=== PATIENT | female | born 1960 | race Hispanic/Latino ===

== ENCOUNTER → 2018-09-16 | Outpatient (CLI) | payer OTHER | END | disposition home or self-care (01) | LOC: RAH 16:04 | PROVIDERS: ATTEND Family Medicine | DX: Z12.31 Encounter for screening mammogram for malignant neoplasm of breast (principal) | CPT/HCPCS: 77067 ==

== ENCOUNTER 2019-05-19 07:31 | Emergency (ER) | payer OTHER ==
[2019-05-19 08:01] LABS: BASOPHILS % (AUTO) 0.4 % (0.0-5.0); EOSINOPHILS % (AUTO) 0.5 % (0.0-8.0); HEMATOCRIT 34.6 % (36-48); LYMPHOCYTES % (AUTO) 44.1 % (21.0-51.0); MEAN CORPUSCULAR HEMOGLOBIN 29.2 pg (27.0-33.0); MEAN CORPUSCULAR HGB CONC 32.4 g/dL (32.0-36.0); MEAN CORPUSCULAR VOLUME 90.3 fL (79-99); MONOCYTES % (AUTO) 9.6 % (3.0-13.0); NEUTROPHILS % (AUTO) 45.2 % (40.0-77.0); PLATELET COUNT (AUTO) 244 K/uL (130-400); RED BLOOD CELL COUNT(AUTO) 3.83 MIL/uL (4.00-5.50); RED CELL DISTRIBUTION WIDTH 11.3 % (11.0-15.5); WHITE BLOOD COUNT (AUTO) 5.7 K/uL (4.8-10.8)
[2019-05-19] MEDS ORDERED: LIDOCAINE HCL 2% VISCOUS 15 ML UDCUP ONE (08:07)
[2019-05-19] MEDS ORDERED: ASPIRIN 325 MG TABLET ONE (08:07)
[2019-05-19] MEDS ORDERED: MECLIZINE HCL 25 MG TABLET ONE (08:07)
[2019-05-19] MEDS ORDERED: MAGNESIUM HYDROXIDE 30 ML/UDCUP ONE (08:08)
[2019-05-19 08:09] LABS: CREATININE 0.6 mg/dL (0.5-1.5); POTASSIUM 3.5 mmol/L (3.5-5.1)
[2019-05-19 08:15] LABS: ALBUMIN 3.3 g/dL (3.5-5.0); BILIRUBIN,TOTAL 0.2 mg/dL (0.2-1.0)
== END 2019-05-19 10:42 | disposition home or self-care (01) ==
LOC: EDH 07:31
DX: R07.89 Other chest pain (principal); K21.9 Gastro-esophageal reflux disease without esophagitis; R51 Headache; R42 Dizziness and giddiness; I10 Essential (primary) hypertension; E11.9 Type 2 diabetes mellitus without complications
CPT/HCPCS: 36415; 70450; 71045; 80053; 82550; 82948; 84484; 85025; 93005

== ENCOUNTER → 2019-12-20 | Outpatient (CLI) | payer OTHER | END | disposition home or self-care (01) | LOC: RAH 10:13 | PROVIDERS: ATTEND Family Medicine | DX: Z12.31 Encounter for screening mammogram for malignant neoplasm of breast (principal) | CPT/HCPCS: 77067 ==

== ENCOUNTER 2023-01-12 10:04 | Day surgery (SDC) | payer OTHER ==
[2023-01-08 11:37] VITALS: BP 140/69; PULSE 53; RESP 18
[~2023-01-12] VITALS: Ht 152.4 cm; Wt 75.2 kg
[2023-01-12] VITALS (10 sets, daily range): BP systolic 119–164; BP diastolic 60–91; PULSE 59–70; RESP 13–22
[~2023-01-12 10:04] MED LIST: ASPI-1197 PO; CHOL200074 PO; CYAN1TAB44 PO; DIPH-1242 PO; LOSA50TA64 PO; METF-444 PO
[2023-01-12] MEDS ORDERED: PROPOFOL 10 MG/ML 20ML VIAL IV ONE (15:33)
[2023-01-12] MEDS ORDERED: ATROPINE 1MG SYG IVP ONE (15:34)
[2023-01-12] MEDS ORDERED: LIDOCAINE PF 100MG/5ML (2%) SYRINGE 5ML ONE (15:34)
[2023-01-12] MEDS ORDERED: PANT40TA54 PO (16:09)
== END 2023-01-12 16:30 | disposition home or self-care (01) ==
LOC: DAH 10:04 → ENDO 10:04
PROVIDERS: ATTEND Internal Medicine Gastroenterology
DX: D50.9 Iron deficiency anemia, unspecified (principal); R12 Heartburn; K21.00 Gastro-esophageal reflux disease with esophagitis, without bleeding; K29.50 Unspecified chronic gastritis without bleeding; I10 Essential (primary) hypertension; E11.9 Type 2 diabetes mellitus without complications; K76.0 Fatty (change of) liver, not elsewhere classified; E03.9 Hypothyroidism, unspecified; I49.1 Atrial premature depolarization; Z82.49 Family history of ischemic heart disease and other diseases of the circulatory system; Z90.722 Acquired absence of ovaries, bilateral; Z72.89 Other problems related to lifestyle; Z79.899 Other long term (current) drug therapy; Z98.890 Other specified postprocedural states
CPT/HCPCS: 88305; 43239; 93005; J2001; J0461; J2704; A4620; A4215 ×2; A4223; A4657 ×3; A7002; A4222; A4221; A4663; J7030; A4606; J3490

== ENCOUNTER → 2023-09-29 | Outpatient (CLI) | payer OTHER ==
[~2023-09-29] MED LIST changes: +PANT40TA54 PO
== END | disposition home or self-care (01) ==
LOC: RAH 15:06
PROVIDERS: ATTEND Family Medicine
DX: Z12.31 Encounter for screening mammogram for malignant neoplasm of breast (principal); R92.323 Mammographic fibroglandular density, bilateral breasts
CPT/HCPCS: 77067